=== PATIENT | male | born 1950 | race African-American/Black ===

== ENCOUNTER 2023-11-17 12:09 | Inpatient (IN) ==
--- NOTE | 2023-11-17 12:22 | Emergency Department Note ---
Impression & Plan Slurred speech, History of epilepsy, Vertebral artery occlusion ED Provider Note Provider: Trace Welch MD DATE OF SERVICE: 11/17/2023 CHIEF COMPLAINT: Speech issues, possible stroke HISTORY OF PRESENT ILLNESS: Patient is a 73-year-old gentleman history of traumatic brain bleed as well as epilepsy with neurocognitive behavior issues presenting via ambulance from [facility] present today. According to records from the staff and EMS report, patient evidently last week has had several falls and/or since 11 AM this morning was noted not quite be himself. They stated he had trouble finishing words and maybe had a bit of right facial droop. According to EMS the patient was resistant to interventions for them. Given possibility of stroke within the time window was made a stroke alert. Assessed in room B1. Patient initially highly agitated with guards at bedside and handcuffed screaming why is he here and he does not want to be here. Verbally de-escalated the patient. He seems to be following commands. Not sure of exact baseline with speech but does sound coherent to me at this time. Follows commands and denies any numbness in the extremities. Denies dizziness. Denies headache. States he had breakfast and then at lunch he dropped his tray and that is why he is here. Patient does report a history of seizures on Dilantin and Tegretol and states he has been taking these. Paperwork from the half-way confirms this. Paperwork also the case and the patient confirms he is normally wheelchair-bound. PAST MEDICAL HISTORY: As noted above MEDICATIONS: Reviewed medication list SOCIAL HISTORY: Inmate at the state half-way PHYSICAL EXAM: GENERAL: alert and oriented on stretcher handcuffed/shackled with guards at bedside. Patient initially agitated and screaming. Head: normocephalic and atraumatic EYES: No injection, discharge or icterus. PERRL, EOMI. NECK: Trachea midline. Supple. ENT: Mucous membranes pink and moist. Pharynx without erythema or exudate. LUNGS: Airway patent. No retractions. Breath sounds clear with good air entry bilaterally. HEART: Regular rate and rhythm. No chest wall tenderness ABDOMEN: Soft and non-tender, without guarding or rebound. SKIN: Acyanotic, warm, dry, without rashes EXTREMITIES: Without swelling, tenderness or deformity NEUROLOGICAL: No aphasia. No facial droop with perhaps some slight slurred speech. No tongue deviation. Normal strength and tone in the upper extremities. Bilateral fairly symmetric weakness of the lower extremities and is reportedly in a wheelchair at baseline. Sensation to gross touch normal. EK bpm sinus rhythm first-degree AV block. No PVC or PAC. No acute ST segment elevation or depression with a QTc of 417. CONTINUOUS CARDIAC MONITORING: was ordered and showed a heart rate of 90s-100s bpm in sinus rhythm first-degree AV block Patient's laboratory studies and imaging reviewed. Differential includes Infection, dehydration, metabolic abnormality, hypo/hyperglycemia, electrolyte disturbance, anemia, hypoxia, cardiac sources, intracerebral event, toxicologic, neurologic, as well as other pathologies. IMPRESSION/MEDICAL DECISION MAKING: No clear seizure activity reported from the available history. Patient is hypertensive upon arrival but somewhat agitated. Maybe a bit of speech abnormality by report and then several falls recently. Last known well reportedly around 11. Seem to be answering my questions appropriately. Follows commands. Does not have any obvious drift and moving all extremities fairly equal without significant facial droop on my exam or tongue deviation. Will obtain CT and CT angiograms of the head to ensure no acute abnormality as well as obtain basic blood work. Unfortunately Dilantin level will be a send out due to changes in the lab. Does not appear significantly toxic however. Denies any other infectious symptoms. Denies other pain in the extremities. Did discuss with Dr. Regalado of the [place] [facility] the patient's history. Does confirm that the history of traumatic subdural is an absolute contraindication for thrombolytics. Again not entirely sure the patient suffering true slurred speech at this point no other severe deficits and I do not believe he is also placed to truly consent for thrombolytics anyway. Will avoid thrombolytics given the contraindication. The angiograms were completed. 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 Discussed with the stroke specialist and recommended antiplatelet but no anticoagulation. No other acute intervention. Blood work here without significant leukocytosis. Borderline anemia at 12.6. No severe electrolyte abnormality signs of renal dysfunction. Urinalysis negative for signs of infection. Dilantin level again pending. Discussed with patient at bedside findings. Recommended given the CT angiogram findings we start the patient on aspirin and Plavix and monitor him here for further stroke like evaluation. Some discussion with him and the guards and patient was agreeable for this. Hospitalist team contacted. DIAGNOSIS: Slurred speech, vertebral artery occlusion, history of epilepsy DISPOSITION: Hospitalist will evaluate Patient was agreeable with this plan. 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, with behavioral disturbance Nicotine dependence in remission Seizure disorder Unspecified dementia with behavioral disturbance Surgical History No history of previous surgery Social History Smoking Status: Former smoker Tobacco Type: Cigarettes Do You Dip or Chew Tobacco: No; Hx Alcohol Use: No Hx Substance Use: No Preferred Language: Yi Communication Ability: Impaired Communication Ability Comment: pt with hx of unspecified dementia [employer] Required: No Beliefs That Will Affect Care: None Current Living Situation: Other Current Living Situation Comment: [facility] inmate Feels Safe at Home: Yes Assistive Devices: Cane, Glasses, Walker and Wheelchair Allergies Allergies Allergy/AdvReac Type Severity Reaction Status Date / Time No Known Allergies Allergy Verified 05/02/21 01:04 Home Meds Home Medications Medication Instructions Recorded Confirmed atorvastatin 20 mg tablet 20 mg PO DAILY 01/01/21 05/02/21 carbamazepine 200 mg tablet 600 mg PO BID 01/01/21 05/02/21 (Tegretol) phenytoin sodium extended 100 mg 100 mg PO QPM 01/01/21 05/02/21 capsule (Dilantin Extended) phenytoin sodium extended 100 mg 200 mg PO QAM 01/01/21 05/02/21 capsule (Dilantin Extended) memantine 10 mg tablet 10 mg PO BID 05/02/21 05/02/21 Results & Data (ED) Vital Signs Vital Signs - 24 hr 11/17/23 12:15 11/17/23 12:21 11/17/23 12:27 Temperature 37 C Temperature Source Oral Pulse Rate 99 H 100 H Pulse Rate [Finger] Pulse Rate from SpO2 Sensor Pulse Rhythm [Finger] Pulse Strength [Finger] Respiratory Rate 17 Respiratory Effort / Characteristics Respiratory Depth Respiratory Pattern Blood Pressure 173/89 H Blood Pressure [Right Arm] Blood Pressure Mean 117 Blood Pressure Mean [Right Arm] Pulse Oximetry 98 Oxygen Delivery Method Room Air Room Air Sepsis Recent Fever Within 48 Hours No Sepsis New/Unexplained Change in Mental Status N/A Sepsis Action Taken by Nursing No Action Required 11/17/23 12:38 11/17/23 12:39 11/17/23 12:39 Temperature Temperature Source Pulse Rate 93 H 94 H Pulse Rate [Finger] Pulse Rate from SpO2 Sensor 92 H 97 H Pulse Rhythm [Finger] Pulse Strength [Finger] Respiratory Rate 15 15 Respiratory Effort / Characteristics Respiratory Depth Respiratory Pattern Blood Pressure 153/123 H Blood Pressure [Right Arm] Blood Pressure Mean 136 Blood Pressure Mean [Right Arm] Pulse Oximetry 98 99 Oxygen Delivery Method Sepsis Recent Fever Within 48 Hours Sepsis New/Unexplained Change in Mental Status Sepsis Action Taken by Nursing 11/17/23 12:40 11/17/23 12:45 11/17/23 12:45 Temperature Temperature Source Pulse Rate 97 H 101 H Pulse Rate [Finger] Pulse Rate from SpO2 Sensor 97 H 97 H Pulse Rhythm [Finger] Pulse Strength [Finger] Respiratory Rate 20 17 Respiratory Effort / Characteristics Respiratory Depth Respiratory Pattern Blood Pressure 124/94 Blood Pressure [Right Arm] Blood Pressure Mean 108 Blood Pressure Mean [Right Arm] Pulse Oximetry 99 94 Oxygen Delivery Method Sepsis Recent Fever Within 48 Hours Sepsis New/Unexplained Change in Mental Status Sepsis Action Taken by Nursing 11/17/23 12:50 11/17/23 13:00 11/17/23 13:01 Temperature Temperature Source Pulse Rate 101 H 90 Pulse Rate [Finger] Pulse Rate from SpO2 Sensor 103 H 90 Pulse Rhythm [Finger] Pulse Strength [Finger] Respiratory Rate 19 Respiratory Effort / Characteristics Respiratory Depth Respiratory Pattern Blood Pressure 167/122 H Blood Pressure [Right Arm] Blood Pressure Mean 130 Blood Pressure Mean [Right Arm] Pulse Oximetry 98 98 Oxygen Delivery Method Sepsis Recent Fever Within 48 Hours Sepsis New/Unexplained Change in Mental Status Sepsis Action Taken by Nursing 11/17/23 13:01 11/17/23 14:00 Temperature Temperature Source Pulse Rate 91 H Pulse Rate [Finger] 93 H Pulse Rate from SpO2 Sensor 92 H Pulse Rhythm [Finger] Regular Pulse Strength [Finger] Normal Respiratory Rate 16 18 Respiratory Effort / Characteristics Non-Labored Respiratory Depth Normal Respiratory Pattern Regular Blood Pressure Blood Pressure [Right Arm] 157/79 H Blood Pressure Mean Blood Pressure Mean [Right Arm] 105 Pulse Oximetry 98 98 Oxygen Delivery Method Sepsis Recent Fever Within 48 Hours Sepsis New/Unexplained Change in Mental Status Sepsis Action Taken by Nursing Laboratory Data 11/17/23 12:19 11/17/23 12:19 Lab Results 11/17/23 11/17/23 11/17/23 Range/Units 12:19 12:21 13:25 WBC 6.95 (4.8-10.8) K/ul RBC 4.41 L (4.70-6.10) M/uL Hgb 12.6 L (14.0-18.0) g/dl POC Hgb 13.6 L (14.0-18.0) g/dl Hct 37.3 L (42.0-52.0) % POC Hct 40 L (42-52) % MCV 84.6 (80.0-100.0) fL MCH 28.6 (25.0-34.0) pg MCHC 33.8 (32.0-36.0) g/dL RDW Std Deviation 43.2 (36.4-46.3) fL RDW Coeff of Misty 14.0 (11.5-14.5) % Plt Count 305 (130-400) K/uL MPV 9.8 (9.4-12.4) fL Immature Gran % (Auto) 0.1 % Neut % (Auto) 62.7 % Lymph % (Auto) 24.0 % Frontier % (Auto) 10.5 % Eos % (Auto) 2.0 % Baso % (Auto) 0.7 % Neut # (Auto) 4.35 (1.40-6.50) K/uL Lymph # (Auto) 1.67 (1.20-3.40) K/uL Frontier # (Auto) 0.73 H (0.11-0.59) K/uL Eos # (Auto) 0.14 (0.00-0.50) K/uL Baso # (Auto) 0.05 (0.00-0.20) K/uL Immature Gran # (Auto) 0.01 (0.01-0.20) K/uL Target Cells 1+ PT 11.4 (9.0-12.0) Seconds INR 1.1 (0.9-1.1) APTT 33 H (21-31) Seconds PTT Ratio 1.2 POC Sodium 138 (135-144) mmol/L Sodium 135 L (136-145) mmol/L POC Potassium 4.3 (3.3-5.0) mmol/L Potassium 4.2 (3.5-5.1) mmol/L POC Chloride 102 (101-112) mmol/L Chloride 101 (98-107) mmol/L Carbon Dioxide 28 (21-32) mmol/L POC Total CO2 26 (24-31) mmol/L Anion Gap 6 (3-11) POC Anion Gap 15.0 L (16-25) mmol/L POC BUN 19 H (7-18) mg/dl BUN 18 (6-23) mg/dl Creatinine 0.82 (0.6-1.4) mg/dl POC Creatinine 0.8 (0.6-1.3) mg/dl Est Cr Clr Drug Dosing 61.5 ml/min Est GFR ( Amer) 100.3 ml/min Est GFR (Non-Af Amer) 86.5 ml/min BUN/Creatinine Ratio 22.0 H (10-20) Glucose 81 (70-99(Fasting)) mg/dl POC Glucose (other) 84 (70-99) mg/dl Calcium 9.4 (8.6-10.3) mg/dl POC Ioniz Calcium Oscar 1.16 (1.12-1.32) mmol/l Magnesium 2.3 (1.7-2.4) mg/dl Total Bilirubin 0.3 (0.2-1.0) mg/dl AST 34 (13-39) U/L ALT 15 (7-52) U/L Alkaline Phosphatase 90 (34-104) U/L Troponin I High Sens 17.7 (0-20) pg/ml Total Protein 8.6 H (6.0-8.3) gm/dl Albumin 4.3 (3.4-5.0) gm/dl Globulin 4.3 H (2.5-4.0) gm/dl Albumin/Globulin Ratio 1.0 (0.9-2) Urine Color Yellow Urine Appearance Clear (Clear) Urine pH 7.5 (4.5-7.5) Ur Specific Lacon 1.033 H (1.000-1.030) Urine Protein Negative (Negative) Urine Glucose (UA) Negative (Negative) Urine Ketones Negative (Negative) Urine Blood Negative (Negative) Urine Nitrite Negative (Negative) Urine Bilirubin Negative (Negative) Urine Urobilinogen Negative (Negative) Ur Leukocyte Esterase Negative (Negative) Phenytoin See Scanned Report Administered Medications Discontinued Medications Aspirin (Aspirin Chew 324 Mg) 324 mg PO NOW STA Stop: 11/17/23 14:10 Last Admin: 11/17/23 14:16 Dose: 324 mg Documented By: DONNA Clopidogrel Bisulfate (Clopidogrel Bisulfate 300 Mg Tab) 300 mg PO NOW STA Stop: 11/17/23 14:10 Last Admin: 11/17/23 14:16 Dose: 300 mg Documented By: DONNA Sodium Chloride (Nss) 500 mls @ 999 mls/hr IV .Q31M ONE Stop: 11/17/23 13:25 Last Infusion: 11/17/23 14:19 Dose: Infused Documented By: Admin: 11/17/23 12:57 Dose: 999 mls/hr Documented By: CANDIDO Ioversol (Optiray 320 125ml) 118 ml IV ONCE ONE Stop: 11/17/23 12:28 Last Admin: 11/17/23 12:27 Dose: 118 ml Documented By: [email or web address] Imaging Data Radiologist's Impression: Head CT 11/17/23 12:14 CT SCAN OF THE BRAIN WITHOUT IV CONTRAST CLINICAL HISTORY: Strokelike symptoms. Neurological deficit. Right-sided weakness. Change in mental status. COMPARISON STUDY: CT of the brain dated 06/15/2022. TECHNIQUE: Unenhanced axial CT scan of the brain is performed from the vertex to the skull base. A dose lowering technique was utilized adhering to the principles of ALARA. FINDINGS: Brain parenchyma: There is age-related involutional change noting moderate to advanced confluent subcortical and periventricular microangiopathic disease. There is no hemorrhage, mass effect, or evidence of acute territorial ischemia by CT criteria. Jason-white matter differentiation is preserved. No extra-axial fluid collection is seen. A chronic lacunar infarct is noted in the right thalamus. Ventricles, sulci, cisterns: Prominent secondary to involutional change. Intracranial vasculature: There is atherosclerotic calcification of the cavernous carotid arteries. Calvarium: Unremarkable. Sinuses and mastoids: The visualized paranasal sinuses are clear. The mastoid air cells are well pneumatized. Orbits: The bony orbits are grossly intact. IMPRESSION: There is no hemorrhage, mass effect, or evidence of acute territorial ischemia by CT criteria. ACT 112: Negative or not required by law. Electronically signed by: Logan Hugo M.D. 11/17/2023 12:45 PM Head CTA 11/17/23 12:14 CTA ANGIOGRAPHY OF THE HEAD CLINICAL HISTORY: neuro deficit, acute stroke suspected. Right-sided weakness. COMPARISON STUDY: Head CT June 15, 2022. TECHNIQUE: Helical axial images of the head were obtained following uneventful intravenous administration of 118 cc of Optiray. Sagittal and coronal reconstructions were viewed as well as maximal intensity projections on an independent 3-D workstation. Automated exposure control was utilized for the study. A dose lowering technique was utilized adhering to the principles of ALARA. FINDINGS: No acute intracranial hemorrhage was identified on the head CT will be reported separately. Atrophy is noted. This accounts for ventricular dilatation. White matter hypodensity suggests small vessel disease. The bilateral M1, M2, A1 and A2 segments are patent. There is no occlusion within the anterior circular lesion. There is no intracranial aneurysm. The left vertebral artery is occluded with reconstitution at the level of the distal intracranial portion. This occlusion is age-indeterminate but are depicted on CTA of the neck. The intracranial portion of the right vertebral artery is patent. Basilar artery is patent as are the bilateral posterior cerebral arteries. There are bilateral posterior communicating arteries. IMPRESSION: 1. 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 2. Otherwise, patent intracranial vessels. 3. No intracranial aneurysms. ACT 112: Negative or not required by law. Electronically signed by: Doc Lee M.D. 11/17/2023 12:54 PM Neck CTA 11/17/23 12:14 CT ANGIOGRAM OF THE NECK CLINICAL HISTORY: Neurological deficit. Strokelike symptoms. Right-sided weakness. COMPARISON STUDY: No priors. TECHNIQUE: Following the IV administration of 118 of Optiray 320, CT angiogram of the neck was performed from the aortic arch to the skull base. Images are reviewed in the axial, sagittal, and coronal planes. 3-D MIPS images are created and assessed. IV contrast was administered without complication. All measurements were calculated based on NASCET criteria. A dose lowering technique was utilized adhering to the principles of ALARA. CT DOSE: 1100.62 mGy.cm FINDINGS: Thoracic aorta: There is atherosclerotic calcification of the thoracic aorta. Visualized portions of the thoracic aorta are normal in caliber. The aortic arch demonstrates standard 3-vessel anatomy. Right carotid arterial system: The right common carotid artery is widely patent, as are the right internal and external carotid arteries. Mild calcified plaque is seen in the carotid bulb. Left carotid arterial system: The left common carotid artery is widely patent, as are the left internal and external carotid arteries. Calcified plaque is noted in the carotid bulb and the proximal ICA. 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 The vessels occlude to the skull base. There is moderate to high-grade focal stenosis at the origin of the right vertebral artery seen on axial image #87. Remainder of the right vertebral artery is widely patent. Subclavian arteries: Widely patent bilaterally. Intracranial vasculature: There is complete occlusion of the left vertebral artery at the skull base. This is reconstituted via retrograde flow below the basilar. The remaining intracranial vessels at the skull base are patent. See report of CT angiogram of the brain performed concurrently for detailed findings. Jugular veins: Widely patent bilaterally. Brain parenchyma: The visualized brain parenchyma the skull base is within normal limits. Lung apices: Emphysematous changes noted. Partially visualized upper lobe lung parenchyma otherwise appears clear. Soft tissues: The visualized pharyngeal soft tissues are normal in appearance noting angiographic phase technique. The oropharyngeal airway appears widely patent. The thyroid gland is mildly enlarged and heterogeneous. The salivary glands are normal in appearance. No cervical lymphadenopathy is seen. Skeletal structures: The skeletal structures are osteopenic. The visualized calvarium at the skull base appears intact. The imaged cervical spine is maintained noting multilevel spondylosis. Sinuses and mastoids: There is trace mucosal thickening in the right maxillary antrum. The mastoid air cells are well pneumatized. IMPRESSION: 1. 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 Underlying dissection would be impossible to exclude. 2. There is moderate to high-grade stenosis at the origin of the right vertebral artery. 3. The carotid vessels are patent bilaterally. 4. Emphysema. ACT 112: Negative or not required by law. Electronically signed by: Logan Hugo M.D. 11/17/2023 12:53 PM Discharge Plan Visit Data Patient Disposition: Being Evaluated by Hospitalist Forms Stand Alone Forms: My [facility] Prescriptions Prescriptions: No Action atorvastatin 20 mg Tablet 20 mg PO DAILY phenytoin sodium extended [Dilantin Extended] 100 mg Capsule 100 mg PO QPM carbamazepine [Tegretol] 200 mg Tablet 600 mg PO BID phenytoin sodium extended [Dilantin Extended] 100 mg Capsule 200 mg PO QAM memantine 10 mg Tablet 10 mg PO BID Referrals Referrals: Dasha PILLAI [Primary Care Provider] -
[2023-11-17] MEDS: OPTIRAY 320 125ml IV ONE (12:27)
[2023-11-17 12:34] LABS: iSTAT Creatinine 0.8 mg/dl (0.6-1.3); iSTAT Hemoglobin 13.6 g/dl (14.0-18.0); iSTAT Ionized Calcium 1.16 mmol/l (1.12-1.32); iSTAT Potassium 4.3 mmol/L (3.3-5.0)
[2023-11-17 12:44] LABS: Hematocrit (blood only) 37.3 % (42.0-52.0); Hemoglobin 12.6 g/dl (14.0-18.0); Mean Corpuscular Hemoglobin 28.6 pg (25.0-34.0); Mean Corpuscular Hgb Conc 33.8 g/dL (32.0-36.0); Mean Corpuscular Volume 84.6 fL (80.0-100.0); Mean Platelet Volume 9.8 fL (9.4-12.4); Platelet Count 305 K/uL (130-400); RDW Standard Deviation 43.2 fL (36.4-46.3); Red Blood Count 4.41 M/uL (4.70-6.10); White Blood Count 6.95 K/ul (4.8-10.8)
--- NOTE | 2023-11-17 12:47 | CT Scan Report ---
CT SCAN OF THE BRAIN WITHOUT IV CONTRAST CLINICAL HISTORY: Strokelike symptoms. Neurological deficit. Right-sided weakness. Change in mental s tatus. COMPARISON STUDY: CT of the brain dated 06/15/2022. TECHNIQUE: Unenhanced axial CT scan of the brain is performed from the vertex to the skull base. A do se lowering technique was utilized adhering to the principles of ALARA. FINDINGS: Brain parenchyma: There is age-related involutional change noting moderate to advanced confluent subc ortical and periventricular microangiopathic disease. There is no hemorrhage, mass effect, or evidenc e of acute territorial ischemia by CT criteria. Jason-white matter differentiation is preserved. No ex tra-axial fluid collection is seen. A chronic lacunar infarct is noted in the right thalamus. Ventricles, sulci, cisterns: Prominent secondary to involutional change. Intracranial vasculature: There is atherosclerotic calcification of the cavernous carotid arteries. Calvarium: Unremarkable. Sinuses and mastoids: The visualized paranasal sinuses are clear. The mastoid air cells are well pneu matized. Orbits: The bony orbits are grossly intact. IMPRESSION: There is no hemorrhage, mass effect, or evidence of acute territorial ischemia by CT mehul bar. ACT 112: Negative or not required by law. Electronically signed by: Logan Hugo M.D. 11/17/2023 12:45 PM
[2023-11-17 12:54] LABS: Albumin Level 4.3 gm/dl (3.4-5.0); Bilirubin,Total 0.3 mg/dl (0.2-1.0); Calcium 9.4 mg/dl (8.6-10.3); Creatinine Clr Calc Pharmacy 61.5 ml/min; Est GFR (African American) 100.3 ml/min; Est GFR (Non-African American) 86.5 ml/min; Globulin 4.3 gm/dl (2.5-4.0); Magnesium 2.3 mg/dl (1.7-2.4); Potassium 4.2 mmol/L (3.5-5.1); Total Protein 8.6 gm/dl (6.0-8.3)
--- NOTE | 2023-11-17 12:55 | CT Scan Report ---
CT ANGIOGRAM OF THE NECK CLINICAL HISTORY: Neurological deficit. Strokelike symptoms. Right-sided weakness. COMPARISON STUDY: No priors. TECHNIQUE: Following the IV administration of 118 of Optiray 320, CT angiogram of the neck was perfor med from the aortic arch to the skull base. Images are reviewed in the axial, sagittal, and coronal p lanes. 3-D MIPS images are created and assessed. IV contrast was administered without complication. A ll measurements were calculated based on NASCET criteria. A dose lowering technique was utilized adh ering to the principles of ALARA. CT DOSE: 1100.62 mGy.cm FINDINGS: Thoracic aorta: There is atherosclerotic calcification of the thoracic aorta. Visualized portions of the thoracic aorta are normal in caliber. The aortic arch demonstrates standard 3-vessel anatomy. Right carotid arterial system: The right common carotid artery is widely patent, as are the right int ernal and external carotid arteries. Mild calcified plaque is seen in the carotid bulb. Left carotid arterial system: The left common carotid artery is widely patent, as are the left internet marketer al and external carotid arteries. Calcified plaque is noted in the carotid bulb and the proximal ICA. 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 The vessels occlude to the skull base. There is moderate to high-grade focal stenosis at the origin of the right vertebral artery seen on axial imag e #87. Remainder of the right vertebral artery is widely patent. Subclavian arteries: Widely patent bilaterally. Intracranial vasculature: There is complete occlusion of the left vertebral artery at the skull base. This is reconstituted via retrograde flow below the basilar. The remaining intracranial vessels at t he skull base are patent. See report of CT angiogram of the brain performed concurrently for detailed findings. Jugular veins: Widely patent bilaterally. Brain parenchyma: The visualized brain parenchyma the skull base is within normal limits. Lung apices: Emphysematous changes noted. Partially visualized upper lobe lung parenchyma otherwise a ppears clear. Soft tissues: The visualized pharyngeal soft tissues are normal in appearance noting angiographic pha se technique. The oropharyngeal airway appears widely patent. The thyroid gland is mildly enlarged an d heterogeneous. The salivary glands are normal in appearance. No cervical lymphadenopathy is seen. Skeletal structures: The skeletal structures are osteopenic. The visualized calvarium at the skull ba se appears intact. The imaged cervical spine is maintained noting multilevel spondylosis. Sinuses and mastoids: There is trace mucosal thickening in the right maxillary antrum. The mastoid ai r cells are well pneumatized. IMPRESSION: 1. 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 Underlyi ng dissection would be impossible to exclude. 2. There is moderate to high-grade stenosis at the origin of the right vertebral artery. 3. The carotid vessels are patent bilaterally. 4. Emphysema. ACT 112: Negative or not required by law. Electronically signed by: Logan Hugo M.D. 11/17/2023 12:53 PM
--- NOTE | 2023-11-17 12:55 | CT Scan Report ---
CTA ANGIOGRAPHY OF THE HEAD CLINICAL HISTORY: neuro deficit, acute stroke suspected. Right-sided weakness. COMPARISON STUDY: Head CT June 15, 2022. TECHNIQUE: Helical axial images of the head were obtained following uneventful intravenous administr ation of 118 cc of Optiray. Sagittal and coronal reconstructions were viewed as well as maximal inten sity projections on an independent 3-D workstation. Automated exposure control was utilized for the study. A dose lowering technique was utilized adhering to the principles of ALARA. FINDINGS: No acute intracranial hemorrhage was identified on the head CT will be reported separately. Atrophy is noted. This accounts for ventricular dilatation. White matter hypodensity suggests small vessel disease. The bilateral M1, M2, A1 and A2 segments are patent. There is no occlusion within the anterior circular lesion. There is no intracranial aneurysm. The left vertebral artery is occluded w ith reconstitution at the level of the distal intracranial portion. This occlusion is age-indetermina te but are depicted on CTA of the neck. The intracranial portion of the right vertebral artery is pat ent. Basilar artery is patent as are the bilateral posterior cerebral arteries. There are bilateral p osterior communicating arteries. IMPRESSION: 1. Age indeterminate occlusion of the left vertebral artery with reconstitution within the distal int racranial portion. 2. Otherwise, patent intracranial vessels. 3. No intracranial aneurysms. ACT 112: Negative or not required by law. Electronically signed by: Doc Lee M.D. 11/17/2023 12:54 PM
[2023-11-17] MEDS: SODIUM CHLORIDE 0.9% 500 ML IV ONE (12:57)
[2023-11-17 13:01] LABS: Troponin I High Sensitivity 17.7 pg/ml (0-20)
[2023-11-17 13:04] LABS: INR 1.1 (0.9-1.1); Partial Thromboplastin Ratio 1.2; Partial Thromboplastin Time 33 Seconds (21-31); Prothrombin Time 11.4 Seconds (9.0-12.0)
[2023-11-17 13:06] LABS: Basophils # (auto) 0.05 K/uL (0.00-0.20); Basophils % (auto) 0.7 %; Eosinophils # (auto) 0.14 K/uL (0.00-0.50); Immature Granulocytes # (auto) 0.01 K/uL (0.01-0.20); Immature Granulocytes % (auto) 0.1 %; Lymphocytes # (auto) 1.67 K/uL (1.20-3.40); Monocytes # (auto) 0.73 K/uL (0.11-0.59); Monocytes % (auto) 10.5 %; Neutrophils # (auto) 4.35 K/uL (1.40-6.50); Neutrophils % (auto) 62.7 %; Target Cells 1+
[2023-11-17 13:48] LABS: Appearance Urine Clear (Clear); Bilirubin Urine Negative (Negative); Blood Urine Negative (Negative); Color Urine Yellow; Glucose Urine UA Negative (Negative); Ketones Urine Negative (Negative); Leukocyte Esterase Urine Negative (Negative); Nitrite Urine Negative (Negative); Protein Urine Negative (Negative); Specific Gravity Urine 1.033 (1.000-1.030); Urobilinogen Urine Negative (Negative); pH Urine 7.5 (4.5-7.5)
[2023-11-17] MEDS: CLOPIDOGREL BISULFATE 300 MG TAB PO STA (14:16)
[2023-11-17] MEDS: ASPIRIN CHEW 324 MG PO STA (14:16)
--- NOTE | 2023-11-17 15:56 | History & Physical Report ---
Date of Service November 17, 2023 Assessment & Plan (1) Vertebral artery occlusion: (2) History of epilepsy: (3) Slurred speech: Plan 73 yo male with h/o TBI, seizures admitted with change in mental status, TIA symptoms, CTA brain vertebral artery occlusion, acuity unknown neuro checks tele asa, plavix continue statins neuro consult BP control Dilantin level elevated decrease dose or transition to Keppra continue Tegretol obtain level History of Present Illness Chief Complaint: slurred speech, confusion Primary Care Provider: ROSAS Lou 73-year-old gentleman history of traumatic brain bleed as well as epilepsy , TBI presenting via ambulance from [facility] present today. According to records from the staff and EMS report, patient evidently last week has had several falls and/or since 11 AM this morning was noted not quite be himself. They stated he had slurred speech and maybe had a bit of right facial droop. alert. Patient initially highly agitated with guards at bedside and handcuffed screaming why is he here and he does not want to be here.Patient is wheelchair bound. Follows commands and denies any numbness in the extremities. Denies dizziness. Denies headache. S Patient does report a history of seizures on Dilantin and Tegretol and states he has been taking these. 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 Allergies Allergy/AdvReac Type Severity Reaction Status Date / Time No Known Allergies Allergy Verified 05/02/21 01:04 Home Medications Medication Instructions Recorded Confirmed Type atorvastatin 20 mg tablet 20 mg PO DAILY 01/01/21 05/02/21 History carbamazepine 200 mg tablet 600 mg PO BID 01/01/21 05/02/21 History (Tegretol) phenytoin sodium extended 100 mg 100 mg PO QPM 01/01/21 05/02/21 History capsule (Dilantin Extended) phenytoin sodium extended 100 mg 200 mg PO QAM 01/01/21 05/02/21 History capsule (Dilantin Extended) memantine 10 mg tablet 10 mg PO BID 05/02/21 05/02/21 History 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, with behavioral disturbance Nicotine dependence in remission Seizure disorder Unspecified dementia with behavioral disturbance Surgical History No history of previous surgery Social History Smoking Status: Former smoker Tobacco Type: Cigarettes Do You Dip or Chew Tobacco: No; Hx Alcohol Use: No Hx Substance Use: No Preferred Language: Sami Communication Ability: Impaired Communication Ability Comment: pt with hx of unspecified dementia Concrete Paving Supervisor Required: No Beliefs That Will Affect Care: None Current Living Situation: Other Current Living Situation Comment: [facility] inmate Feels Safe at Home: Yes Assistive Devices: Cane, Glasses, Walker and Wheelchair Review of Systems Review of Systems: All systems reviewed & are unremarkable except as noted in HPI & below Physical Exam Physical Exam: head atraumatic neck supple chest CTA b/l heart S1S2 regular abdomen soft, nt, nd, bs present extremities no swelling, no cyanosis, pulses decreased neuro alert, awake, no focal deficit, generalized weakness Results & Data Results & Data Vital Signs (Past 12 Hours) Vital Signs Temp Pulse Pulse Resp BP BP Pulse Ox 11/17/23 14:00 93 H 18 157/79 H 98 11/17/23 13:01 91 H 16 98 11/17/23 13:01 167/122 H 11/17/23 13:00 90 19 98 11/17/23 12:50 101 H 98 11/17/23 12:45 101 H 17 94 11/17/23 12:45 124/94 11/17/23 12:40 97 H 20 99 11/17/23 12:39 153/123 H 11/17/23 12:39 94 H 15 99 11/17/23 12:38 93 H 15 98 11/17/23 12:27 11/17/23 12:21 100 H 11/17/23 12:15 37 C 99 H 17 173/89 H 98 O2 Del Method 11/17/23 14:00 11/17/23 13:01 11/17/23 13:01 11/17/23 13:00 11/17/23 12:50 11/17/23 12:45 11/17/23 12:45 11/17/23 12:40 11/17/23 12:39 11/17/23 12:39 11/17/23 12:38 11/17/23 12:27 Room Air 11/17/23 12:21 11/17/23 12:15 Room Air Laboratory Results Abnormal lab results 11/17/23 11/17/23 11/17/23 Range/Units 12:19 12:21 13:25 RBC 4.41 L (4.70-6.10) M/uL Hgb 12.6 L (14.0-18.0) g/dl POC Hgb 13.6 L (14.0-18.0) g/dl Hct 37.3 L (42.0-52.0) % POC Hct 40 L (42-52) % Brown # (Auto) 0.73 H (0.11-0.59) K/uL APTT 33 H (21-31) Seconds Sodium 135 L (136-145) mmol/L POC Anion Gap 15.0 L (16-25) mmol/L POC BUN 19 H (7-18) mg/dl BUN/Creatinine Ratio 22.0 H (10-20) Total Protein 8.6 H (6.0-8.3) gm/dl Globulin 4.3 H (2.5-4.0) gm/dl Ur Specific [place] 1.033 H (1.000-1.030) PG Care Time/CCT Total # of Minutes Spent Total Time Spent with Patient: Total time spent is greater than 50% in coordination of care (as documented) at patient's floor/unit and/or counseling patient: Coding Level of Care Code 97854 INT INP/OBS CARE 2/55MIN Diagnoses Vertebral artery occlusion I65.09 History of epilepsy Z86.69 Slurred speech R47.81
--- NOTE | 2023-11-17 16:51 | Electrocardiogram Report ---
Test Reason : Blood Pressure : / mmHG Vent. Rate : 092 BPM Atrial Rate : 092 BPM P-R Int : 216 ms QRS Dur : 072 ms QT Int : 338 ms P-R-T Axes : 087 090 072 degrees QTc Int : 417 ms Sinus rhythm with 1st degree A-V block Rightward axis Borderline ECG When compared with ECG of 15-JUN-2022 19:53, No significant change was found Confirmed by Filiberto Mai ([id number]) on 11/17/2023 4:51:26 PM Referred By: [facility] Confirmed By:Filiberto Mai
[2023-11-17] MEDS ORDERED: [UNRECOGNIZED DRUG - OTHER] BUCCAL SCH (17:11)
[2023-11-17] MEDS ORDERED: ACETAMINOPHEN 325 MG TAB PO PRN (17:11)
[2023-11-17] MEDS ORDERED: POLYETHYLENE (MIRALAX) 17 GM PACK PO PRN (17:11)
[2023-11-17] MEDS ORDERED: MELATONIN 3 MG TAB PO PRN (17:11)
[2023-11-17] MEDS ORDERED: MAGNESIUM HYDROXIDE SUSP 30 ML UDC PO PRN (17:11)
[2023-11-17] MEDS ORDERED: ONDANSETRON INJ 2 MG/ML 2 ML VIAL IV PRN (17:11)
[2023-11-17] MEDS: ASPIRIN 81 MG ECTAB PO ONE (17:57)
--- NOTE | 2023-11-17 18:46 | XRay Report ---
SINGLE VIEW CHEST CLINICAL HISTORY: MRI clearance. FINDINGS: An AP, portable, supine chest radiograph is compared to study dated 06/15/2022. The cardiom ediastinal silhouette is top normal for projection noting atherosclerotic calcification of the thorac ic aorta. Emphysema and chronic interstitial thickening is similar to previous. Postoperative parench ymal scarring are seen throughout both lungs. No airspace consolidation or large pleural effusion is identified. No pneumothorax is seen. The skeletal structures are osteopenic. There are chronic/healed left-sided rib fractures. No radiodense/metallic foreign body is seen. IMPRESSION: 1. Emphysematous change with no active disease in the chest. 2. No radiodense/metallic foreign body is seen. ACT 112: Negative or not required by law. Electronically signed by: Logan Hugo M.D. 11/17/2023 6:44 PM
--- NOTE | 2023-11-17 18:54 | XRay Report ---
KUB CLINICAL HISTORY: MRI clearance. FINDINGS: 2 AP, portable, supine abdominal radiographs are obtained. No prior studies are available f or comparison at the time of dictation. There is a nonobstructed abdominal bowel gas pattern. Moderat e to severe constipation is observed. No evidence of intraperitoneal free air is identified on these supine images. The bladder is markedly distended with excreted IV contrast and there is bilateral hyd ronephrosis. The skeletal structures are osteopenic. The bony structures are grossly intact. No radio dense/metallic foreign body is seen. IMPRESSION: 1. Excreted IV contrast shows a severely distended bladder with bilateral hydronephrosis. This likely represents bladder outlet obstruction. 2. Moderate to severe constipation. 3. No radiodense/metallic foreign body is identified. Electronically signed by: Logan Hugo M.D. 11/17/2023 6:53 PM
--- NOTE | 2023-11-17 18:57 | XRay Report ---
BONY ORBITS 3 VIEWS CLINICAL HISTORY: MRI clearance. FINDINGS: 3 views of the bony orbits are obtained. No prior studies are available for comparison at t he time of dictation. There is no radiodense/metallic foreign body seen in the region of the bony orb its. The bony orbits are intact as imaged. The visualized paranasal sinuses and the mastoid air cells appear clear. The imaged calvarium appears intact. The patient is edentulous. IMPRESSION: There is no radiodense/metallic foreign body seen in the region of the bony orbits. ACT 112: Negative or not required by law. Electronically signed by: Logan Hugo M.D. 11/17/2023 6:56 PM
[2023-11-17 20:02] LABS: Appearance Urine Clear (Clear); Bacteria Urine Automated None Seen (None Seen); Bilirubin Urine Negative (Negative); Blood Urine Trace (Negative); Cast Urine Automated 0-2 /lpf (0-2); Color Urine Yellow; Epithelial Cell Urine Auto 0-2 /hpf (0-2); Glucose Urine UA Negative (Negative); Ketones Urine Negative (Negative); Leukocyte Esterase Urine Negative (Negative); Nitrite Urine Negative (Negative); Protein Urine Negative (Negative); Specific Gravity Urine 1.026 (1.000-1.030); Urobilinogen Urine Negative (Negative); WBC Urine Automated 0-5 /hpf (0-5)
[2023-11-17] MEDS: cefTRIAXone SODIUM 1,000 MG/50 ML BAG IV STA (20:45)
[2023-11-17] MEDS: carBAMazepine 200 MG TABLET PO SCH (20:47)
[2023-11-17] MEDS: MEMANTINE HCL 10 MG TAB PO SCH (20:47)
[2023-11-17] MEDS ORDERED: PHENYTOIN SODIUM ER 100 MG CAP PO SCH (21:00)
--- NOTE | 2023-11-17 21:19 | Magnetic Resonance Report ---
Exam(s): MRA HEAD Without Contrast EXAM: MR Angiography Head Without Intravenous Contrast CLINICAL HISTORY: Reason for exam: vertebral artery dissection. TECHNIQUE: Magnetic resonance angiography images of the head without intravenous contrast. COMPARISON: CTA of the head performed on 11/17/2023. FINDINGS: Limitations: Study limited by patient motion. Right internal carotid artery: No acute findings. Intracranial segment is patent with no significant stenosis. No aneurysm. Right anterior cerebral artery: Unremarkable. No occlusion or significant stenosis. No aneurysm. Right middle cerebral artery: Unremarkable. No occlusion or significant stenosis. No aneurysm. Right posterior cerebral artery: Unremarkable. No occlusion or significant stenosis. No aneurysm. Right vertebral artery: Unremarkable as visualized. Left internal carotid artery: No acute findings. Intracranial segment is patent with no significant stenosis. No aneurysm. Left anterior cerebral artery: Unremarkable. No occlusion or significant stenosis. No aneurysm. Left middle cerebral artery: Unremarkable. No occlusion or significant stenosis. No aneurysm. Left posterior cerebral artery: Unremarkable. No occlusion or significant stenosis. No aneurysm. Left vertebral artery: Unremarkable as visualized. Basilar artery: Unremarkable. No occlusion or significant stenosis. No aneurysm. IMPRESSION: Study limited by patient motion but no gross acute abnormality of the large caliber intracranial arteries. Electronically signed by: Dagoberto Pizano M.D. 11/17/23 21:18 PM
--- NOTE | 2023-11-17 21:23 | Magnetic Resonance Report ---
Exam(s): MRI HEAD Without Contrast EXAM: MR Head Without Intravenous Contrast CLINICAL HISTORY: Reason for exam: CVA. TECHNIQUE: Magnetic resonance images of the head/brain without intravenous contrast in multiple planes. COMPARISON: No relevant prior studies available. FINDINGS: Brain: Left occipital encephalomalacia likely related to remote infarct. Atrophy cerebral spinal cord with severe spinal canal stenosis at the C4-5 level incompletely evaluated on this exam. Moderate periventricular white matter changes, likely related to chronic microangiopathy. No hemorrhage. Ventricles: Unremarkable. No ventriculomegaly. Bones/joints: See above. Sinuses: Unremarkable as visualized. No acute sinusitis. Mastoid air cells: Unremarkable as visualized. No mastoid effusion. Orbits: Unremarkable as visualized. IMPRESSION: 1. Atrophy cerebral spinal cord with severe spinal canal stenosis at the C4-5 level incompletely evaluated on this exam. 2. Moderate periventricular white matter changes, likely related to chronic microangiopathy. Electronically signed by: Dagoberto Pizano M.D. 11/17/23 21:22 PM
[2023-11-18 08:21] LABS: BUN Creatinine Ratio 20.5 (10-20); Calcium 8.8 mg/dl (8.6-10.3); Chol HDL Ratio 2.5 (0-5); Creatinine Clr Calc Pharmacy 69.5 ml/min; Est GFR (African American) 105.2 ml/min; Est GFR (Non-African American) 90.7 ml/min; Magnesium 2.3 mg/dl (1.7-2.4); Potassium 4.5 mmol/L (3.5-5.1)
[2023-11-18 08:22] LABS: Estimated Average Glucose 111 mg/dl; Hemoglobin A1C 5.5 % (4.5-5.6)
[2023-11-18 08:28] LABS: Basophils # (auto) 0.06 K/uL (0.00-0.20); Basophils % (auto) 0.9 %; Eosinophils # (auto) 0.21 K/uL (0.00-0.50); Hematocrit (blood only) 35.7 % (42.0-52.0); Hemoglobin 11.8 g/dl (14.0-18.0); Immature Granulocytes # (auto) 0.01 K/uL (0.01-0.20); Immature Granulocytes % (auto) 0.1 %; Lymphocytes # (auto) 1.26 K/uL (1.20-3.40); Lymphocytes % (auto) 18.1 %; Mean Corpuscular Hemoglobin 28.4 pg (25.0-34.0); Mean Corpuscular Hgb Conc 33.1 g/dL (32.0-36.0); Mean Corpuscular Volume 85.8 fL (80.0-100.0); Mean Platelet Volume 9.3 fL (9.4-12.4); Monocytes # (auto) 0.64 K/uL (0.11-0.59); Monocytes % (auto) 9.2 %; Neutrophils % (auto) 68.7 %; Platelet Count 305 K/uL (130-400); RDW Coefficient of Variation 14.2 % (11.5-14.5); RDW Standard Deviation 44.5 fL (36.4-46.3); Red Blood Count 4.16 M/uL (4.70-6.10); White Blood Count 6.98 K/ul (4.8-10.8)
[2023-11-18] MEDS ORDERED: CLOPIDOGREL BISULFATE 75 MG TAB PO SCH (09:00)
[2023-11-18] MEDS: CLOPIDOGREL BISULFATE 75 MG TAB PO SCH (09:34)
[2023-11-18] MEDS: ASPIRIN 81 MG ECTAB PO SCH (09:34)
[2023-11-18] MEDS: ATORVASTATIN 20 MG TAB PO SCH (09:34)
[2023-11-18] MEDS: PHENYTOIN SODIUM ER 100 MG CAP PO SCH (09:35)
--- NOTE | 2023-11-18 11:00 | Neurology Consultation ---
Date of Consultation November 18, 2023 Assessment & Plan (1) Acute right-sided weakness: (2) History of epilepsy: (3) Slurred speech: (4) Ataxia: (5) Neurocognitive disorder: (6) Phenytoin toxicity: (7) Cervical spinal stenosis: (8) Vertebral artery occlusion: Plan This is a complicated patient neurologically and unfortunately he does not give a very clear history. He has a longstanding history of seizure disorder and has been on phenytoin and carbamazepine for approximately 44 years. In the past he has had toxic levels of both medicines and currently he has not toxic Dilantin level. His seizures have been fairly well-controlled as far as I can tell The patient had an acute constellation of symptoms November 16 (word finding difficulty and right-sided weakness) which have resolved. MRI shows no evidence of stroke but he does have old small vessel ischemic disease. In addition he has vertebral occlusion on the left (age-indeterminate) as well as moderate to significant right vertebral stenosis at the origin. A TIA cannot be excluded. Patient has progressive balance and neurocognitive issues. I suspect this is chronic Dilantin (and/or carbamazepine) toxicity. These can give ataxia, dementia, and neuropathy. There is a concern about significant cervical spinal stenosis based on 1 college scouting coordinator film from the MRI of the brain. I see no evidence of upper motor neuron signs in the limbs but he likely has some neuropathy from chronic Dilantin usage which would mask any upper motor neuron signs. Since the patient has no teeth in, his speech might be slurred from that. The patient has a history of syphilis in the past, but I do not have any details regarding this. Neurosyphilis can create neurocognitive and balance issues as well. Recommendations: 1. Continue Dilantin at the decreased dose of 100 mg twice a day. Recheck a trough level in 2 weeks and make additional recommendations 2. Awaiting carbamazepine level (I also suspect that this is toxic as he is on a very large dose for his size). 3. terminal superintendent (as an outpatient) we may consider discontinuing Dilantin or carbamazepine and using different, new or anticonvulsants which do not have the long-term cognitive side effects. This would include lamotrigine. I would not, however, make any changes in medication at this time (simply lower toxic levels). 4. Check TSH, B12, Lyme antibody titer, and test for syphilis 5. MRI of the cervical spine without contrast. 6. Continue 81 mg aspirin tablet daily. Depending on his clinical course she may do better with clopidogrel instead of aspirin given his significant vertebral stenosis. 7. I see no need for an EEG or other neurologic testing at this time. 8. If neuro syphilis is being considered he would need an LP (which could be arranged as an outpatient) 9. I could follow-up as an outpatient and 4 to 6 weeks if desired. Overall, I spent a total of 110 minutes with this case including review of records, review of MRI films, direct evaluation the patient at bedside, report generation, and discussion of the case with the patient and RN at bedside and Dr. Campos including differential diagnosis and treatment options. History of Present Illness Reason for Consultation: Patient is a 73-year-old, who I was asked to see at the request of Dr. Fajardo, for neurologic evaluation regarding possible stroke Requesting Physician: Dr. Fajardo Attending Physician: Liz Campos MD History of Present Illness This patient apparently has a history of a "crippled foot" since childhood (he is not overly clear as to what happened to the foot except the big toe does not work and he may have had a significant laceration which needed repaired). His walking has been affected by this but he has not been in a wheelchair except the last few years. The patient has a history of seizures and states that he has been on phenytoin and carbamazepine since 1979. As far as we can gather from records, his seizure disorder has been fairly well-controlled. Current dose of carbamazepine is 600 mg twice a day. His current dose of phenytoin is unclear between the chart and the ER note but I believe that the patient is on 200 mg in the morning and 100 mg in the evening. The patient has neurocognitive, behavioral, and dementia like symptoms which have been progressive over an uncertain timeframe (at least years). The patient himself does not give a good history. Currently he is on memantine 10 mg twice a day. In May 2021, the patient stumbled and fell hitting his head on the doorway. He had a very tiny left frontotemporal subdural hematoma and was sent to [facility]. By June 27, 2021, a repeat CT scan of the head was clear with no subdural. Subsequent CT scans have shown no hemorrhage or abnormalities. I cannot detect any episodes of seizure activity reviewing the chart. According to [facility] medical records, the patient has been falling several times over the last week. He also has not been "himself" behaviorally or cognitively. On the morning of November 16 around 1100 she was found to have a right facial droop, some right-sided weakness, and word finding difficulty. He was also more confused and agitated. He arrived to the emergency room November 16 at 1215 with a temperature of 37, pulse 99, blood pressure 173/89, respiratory rate 17, and O2 saturation 98%. In the ER, he was felt to have some slightly slurred speech and weak in both lower extremities. He was very agitated and screaming requiring physical restraint. CBC revealed mild but stable anemia. CHEM profile was unremarkable. Urinalysis was unremarkable. Phenytoin level was elevated at 31 (normal 10-20). His carbamazepine level is still pending. CT scan of the head was unremarkable. CT angiography of the head and neck was remarkable only for some right vertebral stenosis of a moderate to significant nature at the origin, and an age- indeterminate left vertebral occlusion. It was impossible to exclude dissection. Chest x-ray showed COPD/chronic pulmonary changes MRI of the brain showed atrophy and white matter disease but no acute stroke. There was also mention of this spinal cord atrophy and stenosis at C4-5 (but this was made on 1 sagittal college scouting coordinator image). I reviewed these films with Dr. Lee. Throughout his hospitalization he has had some fluctuating mental status with times of pressured speech and agitation and times of being more clearheaded and calm. He has been noted to have dysarthria although he does not have teeth in. Nursing reports no new issues and blood pressure currently is 132/69. Allergies Allergy/AdvReac Type Severity Reaction Status Date / Time No Known Allergies Allergy Verified 11/17/23 16:53 Home Medications Medication Instructions Recorded Confirmed Type atorvastatin 20 mg tablet 20 mg PO DAILY 01/01/21 11/17/23 History carbamazepine 200 mg tablet 600 mg PO AMPM 01/01/21 11/17/23 History (Tegretol) memantine 10 mg tablet 10 mg PO BID 05/02/21 11/17/23 History phenytoin 50 mg chewable tablet 50 mg PO [id number] 11/17/23 11/17/23 History phenytoin 50 mg chewable tablet 50 mg PO QAM 11/17/23 11/17/23 History phenytoin sodium extended 100 mg 100 mg PO AMPM 11/17/23 11/17/23 History capsule Patient History Medical History Hx of syphilis 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 Nicotine dependence in remission Seizure disorder 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, with behavioral disturbance Abnormality of gait and mobility Unspecified dementia with behavioral disturbance Surgical History No history of previous surgery Social History (Updated 11/18/23 @ 10:41 by Antonio Regalado MD) Smoking Status: Former smoker Tobacco Type: Cigarettes Age Started Using Tobacco: 13; Age Quit Using Tobacco: 68; packs per day: 1.5; Second Hand Exposure: No; Do You Dip or Chew Tobacco: No; Hx Alcohol Use: No (Patient was a heavy alcohol drinker in the past, prior to incarceration.) Hx Substance Use: No Preferred Language: Cantonese Bengali Communication Ability: Effective Communication Ability Comment: pt with hx of unspecified dementia Coordinator Of Online Programs Required: No Beliefs That Will Affect Care: None Current Living Situation: Other Current Living Situation Comment: [facility] current occupation: 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 Feels Safe at Home: Yes Assistive Devices: Wheelchair Review of Systems Constitutional: no fever, no fatigue and no weakness Eyes: + worsening vision (Blurry vision right eye); no diplopia and no eye pain Ear, Nose, Mouth, Throat: no ear pain, no tinnitus, no hearing loss, no dizziness, no snoring, no hoarseness and no dysphagia Respiratory: no cough and no dyspnea Cardiovascular: no chest pain, no palpitations and no lightheadedness Gastrointestinal: no abdominal pain, no nausea and no vomiting Musculoskeletal: no back pain, no neck pain, no radicular pain, no joint pain and no myalgia Integumentary: no rash and no lesions Neurologic: + gait abnormality, + tremor(s), + confu minh and + memory loss; no localized weakness, no generalized weakness, no tingling, no numbness, no abnormal movements, no headache(s) and no abnormal speech Psychiatric: no depression, no irritability, no anxiety, no difficulty concentrating, no confusion and no hallucinations Endocrine: no fatigue and no flushing Hematologic / Lymphatic: no easy bleeding and no easy bruising Allergy / Immunological: no urticaria and no problem reported Exam (Neuro) Physical Exam: The patient is right-handed. The patient is awake, alert, and attentive. Speech is normal without any aphasia. He is somewhat dysarthric but he has no teeth and. At times he can get a little bit agitated but he is quickly calm down with voice. Mood is otherwise normal and affect is appropriate. He was oriented to his name but not his age or the year. He knew the month. He could follow one-step commands fairly well and was able to write his name and read some. The patient has some occasional flailing movements of the upper extremities consistent with a type of ataxia. The lower extremities did not do this. Pupils are 2 mm bilaterally and questionably reactive to light. Extraocular eye muscles are intact without nystagmus. Visual acuity and visual [place] seem normal grossly to confrontation. There are no deficits to sensation in the face in all 3 distributions of the fifth cranial nerve bilaterally. Corneal reflexes are positive bilaterally. Facial strength and symmetry was normal bilaterally. Hearing seems intact grossly to voice and finger rub bilaterally. Palate moves well without asymmetry. There is normal sternocleidomastoid and trapezius strength bilaterally. Tongue is midline with good strength bilaterally. Neck has a full range of motion without discomfort. There are no cervical bruits bilaterally. There are no cranial or ocular bruits. Heart is without murmur. There is a regular rhythm and rate. Cervical, thoracic, and lumbar spine are nontender to palpation. Gait was not tested and stance sitting up in bed is reasonable. With outstretched arms there is no drift. There are no resting tremors. He did have mild coarse action tremor left greater than right arm. There is mild ataxia with finger to nose testing. There is decreased facility in the hands, with mild ataxia noted with rapid alternating movements. No other abnormal involuntary movements are noted. Motor strength is 5/5 diffusely in the arms bilaterally including deltoids, biceps, brachioradialis, wrist flexors and extensors, it business process architect, and intrinsic hand muscles. The patient clearly had 4/5 strength in the left triceps and 5/5 in the right triceps. Motor strength is 4-4+/5 diffusely in the legs bilaterally including hip flexors, quadriceps, hamstrings, gastrocnemius, tibialis anterior, tibialis posterior, and Peroneii muscles bilaterally. Lower legs seem mildly weak stren gth was symmetrical toe extensors are normal and there is good bulk in the extensor digitorum brevis muscles bilaterally. The limbs have good tone without rigidity or spasticity. He is thin in his m usculature throughout. I noted no focal atrophy. Sensory examination is intact to touch and pin throughout all 4 limbs diffusely, although there may have been some very mild stocking decreased pinprick in the left greater than right leg. Reflexes are 2/4 in the biceps and triceps tendons bilaterally. Quadricep tendon reflexes were 1/4 bilaterally and brachioradialis and Achilles tendon reflexes are absent. Toes are downgoing with plantar stimulation bilaterally. Peripheral pulses are present and of normal quality distally in all 4 limbs. There is no peripheral edema noted in the limbs. Results & Data Vital Signs (Past 12 Hours) Vital Signs Temp Pulse Resp BP Pulse Ox O2 Del Method 11/18/23 07:58 37.0 C 106 H 24 144/74 H 98 Room Air 11/18/23 03:00 36.5 C 91 H 20 130/72 97 Room Air 11/17/23 23:14 36.6 C 94 H 22 127/69 99 Room Air PG Care Time/CCT Total # of Minutes Spent Total Time Spent with Patient: Total time spent is greater than 50% in coordination of care (as documented) at patient's floor/unit and/or counseling patient: Coding Level of Care Code 83690 INT INP/OBS CARE 3/75MIN Diagnoses Acute right-sided weakness R53.1 History of epilepsy Z86.69 Slurred speech R47.81 Ataxia R27.0 Neurocognitive disorder R41.9 Phenytoin toxicity T42.0X1A Cervical spinal stenosis M48.02 Vertebral artery occlusion I65.09 Time Spent (min) 110
--- NOTE | 2023-11-18 14:23 | Magnetic Resonance Report ---
MRI OF THE CERVICAL SPINE WITHOUT CONTRAST CLINICAL HISTORY: Cervical stenosis. COMPARISON: Cervical spine CT June 27, 2021. CTA of the neck November 17, 2023. TECHNIQUE: Utilizing a 1.5 Kathryn magnet and dedicated coil, multiplanar, multiecho imaging of the ce rvical spine was performed without IV contrast. FINDINGS: This exam is mildly compromised by motion artifact. There is reversal of the cervical lordosis with m ild retrolisthesis of C3 on C4, C4 on C5 and C5 on C6. There is no cervical spine fracture. No intrac analicular mass or fluid collection is present. Severe multilevel degenerative changes within the cer vical spine are present. There is no prevertebral edema. There is possible increased T2 signal within the cord at the C4-C5 level. Cervical cord appears somewhat diminutive in caliber at the C3-C5 level s. C2-C3: The central canal and neural foramen are patent. C3-C4: Posterior disc osteophyte complex indents the ventral aspect of the cord. There is moderate c entral canal stenosis. Moderate to severe bilateral neural foraminal stenosis is due to facet arthros is and uncovertebral hypertrophy. C4-C5: There is retrolisthesis with posterior disc osteophyte complex and ligamentous hypertrophy. F indings result in severe narrowing of the central canal. Patent AP diameter of the canal is 3 mm. The re is severe bilateral neural foraminal stenosis due to uncovertebral hypertrophy and facet arthrosis . C5-C6: There is mild disc space narrowing. Posterior disc osteophyte complex results in mild central canal stenosis. There is moderate bilateral neural foraminal stenosis. C6-C7: Mild posterior disc osteophyte complex results in mild central canal stenosis. There is sever e left and moderate right neural foraminal stenosis. C7-T1: The central canal and neural foramen are patent. IMPRESSION: 1. Multilevel degenerative disc disease and facet arthrosis within the cervical spine which results i n severe central canal stenosis at C4-C5 and moderate central canal stenosis at C3-C4. 2. Possible increased T2 signal within the cord at the C4-C5 level. This could reflect cord edema or myelomalacia given suspected cord atrophy. 3. Severe multilevel neural foraminal stenosis within the cervical spine, as detailed above. 4. Reversal of the cervical lordosis with multilevel retrolisthesis, as detailed above. ACT 112: Negative or not required by law. Electronically signed by: Doc Lee M.D. 11/18/2023 2:21 PM
--- NOTE | 2023-11-18 15:52 | Discharge Summary ---
Date of Service November 18, 2023 Admission HPI Per Admitting Provider 73-year-old gentleman history of traumatic brain bleed as well as epilepsy , TBI presenting via ambulance from [facility] present today. According to records from the staff and EMS report, patient evidently last week has had several falls and/or since 11 AM this morning was noted not quite be himself. They stated he had slurred speech and maybe had a bit of right facial droop. alert. Patient initially highly agitated with guards at bedside and handcuffed screaming why is he here and he does not want to be here.Patient is wheelchair bound. Follows commands and denies any numbness in the extremities. Denies dizziness. Denies headache. S Patient does report a history of seizures on Dilantin and Tegretol and states he has been taking these. 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 Principal Diagnosis TIA Discharge Exam Constitutional: well-appearing, no acute distress HEENT: NCAT, no conjunctival injection CV: regular rhythm, no murmur appreciated, extremities well-perfused, no LE edema Resp: CTABL, no wheezes/rales/rhonchi appreciated, no increased work of breathing MSK: no gross deformities appreciated Skin: warm, dry, no rash appreciated Neuro: alert, oriented, no focal neurologic deficit appreciated Discharge Data Allergies Allergy/AdvReac Type Severity Reaction Status Date / Time No Known Allergies Allergy Verified 11/17/23 16:53 Consultations 11/17/23 14:20 ED Decision to Admit Stat 11/17/23 17:11 Consult Neurology Routine Ordered Studies 11/17/23 12:14 CT angio head w con Stat CT angio neck with con Stat CT head/brain wo con Stat 11/17/23 15:43 MRI Angio Brain [MR angio head wo con] Stat 11/17/23 16:45 MR brain wo con Stat 11/18/23 09:59 MRI Cervical [MR cervical spine wo con] Urgent Laboratory Results WBC 6.98 K/ul (4.8-10.8) 11/18/23 07:12 RBC 4.16 M/uL (4.70-6.10) L 11/18/23 07:12 Hgb 11.8 g/dl (14.0-18.0) L 11/18/23 07:12 POC Hgb 13.6 g/dl (14.0-18.0) L 11/17/23 12:21 Hct 35.7 % (42.0-52.0) L 11/18/23 07:12 POC Hct 40 % (42-52) L 11/17/23 12:21 MCV 85.8 fL (80.0-100.0) 11/18/23 07:12 MCH 28.4 pg (25.0-34.0) 11/18/23 07:12 MCHC 33.1 g/dL (32.0-36.0) 11/18/23 07:12 RDW Std Deviation 44.5 fL (36.4-46.3) 11/18/23 07:12 RDW Coeff of Misty 14.2 % (11.5-14.5) 11/18/23 07:12 Plt Count 305 K/uL (130-400) 11/18/23 07:12 MPV 9.3 fL (9.4-12.4) L 11/18/23 07:12 Immature Gran % (Auto) 0.1 % 11/18/23 07:12 Neut % (Auto) 68.7 % 11/18/23 07:12 Lymph % (Auto) 18.1 % 11/18/23 07:12 Randolph % (Auto) 9.2 % 11/18/23 07:12 Eos % (Auto) 3.0 % 11/18/23 07:12 Baso % (Auto) 0.9 % 11/18/23 07:12 Neut # (Auto) 4.80 K/uL (1.40-6.50) 11/18/23 07:12 Lymph # (Auto) 1.26 K/uL (1.20-3.40) 11/18/23 07:12 Randolph # (Auto) 0.64 K/uL (0.11-0.59) H 11/18/23 07:12 Eos # (Auto) 0.21 K/uL (0.00-0.50) 11/18/23 07:12 Baso # (Auto) 0.06 K/uL (0.00-0.20) 11/18/23 07:12 Immature Gran # (Auto) 0.01 K/uL (0.01-0.20) 11/18/23 07:12 Target Cells 1+ 11/17/23 12:19 PT 11.4 Seconds (9.0-12.0) 11/17/23 12:19 INR 1.1 (0.9-1.1) 11/17/23 12:19 APTT 33 Seconds (21-31) H 11/17/23 12:19 PTT Ratio 1.2 11/17/23 12:19 POC Sodium 138 mmol/L (135-144) 11/17/23 12:21 Sodium 136 mmol/L (136-145) 11/18/23 07:12 POC Potassium 4.3 mmol/L (3.3-5.0) 11/17/23 12:21 Potassium 4.5 mmol/L (3.5-5.1) 11/18/23 07:12 POC Chloride 102 mmol/L (101-112) 11/17/23 12:21 Chloride 103 mmol/L (98-107) 11/18/23 07:12 Carbon Dioxide 28 mmol/L (21-32) 11/18/23 07:12 POC Total CO2 26 mmol/L (24-31) 11/17/23 12:21 Anion Gap 5 (3-11) 11/18/23 07:12 POC Anion Gap 15.0 mmol/L (16-25) L 11/17/23 12:21 POC BUN 19 mg/dl (7-18) H 11/17/23 12:21 BUN 15 mg/dl (6-23) 11/18/23 07:12 Creatinine 0.73 mg/dl (0.6-1.4) 11/18/23 07:12 POC Creatinine 0.8 mg/dl (0.6-1.3) 11/17/23 12:21 Est Cr Clr Drug Dosing 69.5 ml/min 11/18/23 07:12 Est GFR ( Amer) 105.2 ml/min 11/18/23 07:12 Est GFR (Non-Af Amer) 90.7 ml/min 11/18/23 07:12 BUN/Creatinine Ratio 20.5 (10-20) H 11/18/23 07:12 Glucose 78 mg/dl (70-99(Fasting)) 11/18/23 07:12 POC Glucose (other) 84 mg/dl (70-99) 11/17/23 12:21 Estimat Average Glucose 111 mg/dl 11/18/23 07:43 Hemoglobin A1c 5.5 % (4.5-5.6) 11/18/23 07:43 Calcium 8.8 mg/dl (8.6-10.3) 11/18/23 07:12 POC Ioniz Calcium Oscar 1.16 mmol/l (1.12-1.32) 11/17/23 12:21 Magnesium 2.3 mg/dl (1.7-2.4) 11/18/23 07:12 Total Bilirubin 0.3 mg/dl (0.2-1.0) 11/17/23 12:19 AST 34 U/L (13-39) 11/17/23 12:19 ALT 15 U/L (7-52) 11/17/23 12:19 Alkaline Phosphatase 90 U/L (34-104) 11/17/23 12:19 Troponin I High Sens 17.7 pg/ml (0-20) 11/17/23 12:19 Total Protein 8.6 gm/dl (6.0-8.3) H 11/17/23 12:19 Albumin 4.3 gm/dl (3.4-5.0) 11/17/23 12:19 Globulin 4.3 gm/dl (2.5-4.0) H 11/17/23 12:19 Albumin/Globulin Ratio 1.0 (0.9-2) 11/17/23 12:19 Triglycerides 52 mg/dl (0-150) 11/18/23 07:12 Cholesterol 127 mg/dl (0-200) 11/18/23 07:12 LDL Cholesterol, Calc 67 mg/dl 11/18/23 07:12 VLDL Cholesterol, Calc 10 mg/dl (0-30) 11/18/23 07:12 HDL Cholesterol 50 mg/dl 11/18/23 07:12 Cholesterol/HDL Ratio 2.5 (0-5) 11/18/23 07:12 Vitamin B12 641 pg/ml (180-914) 11/18/23 13:07 TSH 2.045 uIu/ml (0.300-4.500) 11/18/23 07:12 Urine Color Yellow 11/17/23 19: Urine Appearance Clear (Clear) 11/17/23 19: Urine pH 7.0 (4.5-7.5) 11/17/23 19:27 Ur Specific Hillman 1.026 (1.000-1.030) 11/17/23 19:27 Urine Protein Negative (Negative) 11/17/23 19: Urine Glucose (UA) Negative (Negative) 11/17/23 19: Urine Ketones Negative (Negative) 11/17/23 19: Urine Blood Trace (Negative) H 11/17/23 19: Urine Nitrite Negative (Negative) 11/17/23 19: Urine Bilirubin Negative (Negative) 11/17/23 19: Urine Urobilinogen Negative (Negative) 11/17/23 19: Ur Leukocyte Esterase Negative (Negative) 11/17/23 19:27 Urine WBC (Auto) 0-5 /hpf (0-5) 11/17/23 19:27 Urine RBC (Auto) 11-20 /hpf (0-2) H 11/17/23 19:27 U Hyaline Cast (Auto) 0-2 /lpf (0-2) 11/17/23 19:27 U Epithel Cells (Auto) 0-2 /hpf (0-2) 11/17/23 19:27 Urine Bacteria (Auto) None Seen (None Seen) 11/17/23 19:27 Phenytoin Cancelled 11/18/23 11:04 Carbamazepine Cancelled 11/17/23 16:32 SARS-CoV-2, RNA, NAAT NEGATIVE (NEGATIVE) 11/17/23 14:[address] 11/17/23 12:14 CT SCAN OF THE BRAIN WITHOUT IV CONTRAST CLINICAL HISTORY: Strokelike symptoms. Neurological deficit. Right-sided weakness. Change in mental status. COMPARISON STUDY: CT of the brain dated 06/15/2022. TECHNIQUE: Unenhanced axial CT scan of the brain is performed from the vertex to the skull base. A dose lowering technique was utilized adhering to the principles of ALARA. FINDINGS: Brain parenchyma: There is age-related involutional change noting moderate to advanced confluent subcortical and periventricular microangiopathic disease. There is no hemorrhage, mass effect, or evidence of acute territorial ischemia by CT criteria. Jason-white matter differentiation is preserved. No extra-axial fluid collection is seen. A chronic lacunar infarct is noted in the right thalamus. Ventricles, sulci, cisterns: Prominent secondary to involutional change. Intracranial vasculature: There is atherosclerotic calcification of the cavernous carotid arteries. Calvarium: Unremarkable. Sinuses and mastoids: The visualized paranasal sinuses are clear. The mastoid air cells are well pneumatized. Orbits: The bony orbits are grossly intact. IMPRESSION: There is no hemorrhage, mass effect, or evidence of acute territorial ischemia by CT criteria. ACT 112: Negative or not required by law. Electronically signed by: Logan Hugo M.D. 11/17/2023 12:45 PM Head CTA 11/17/23 12:14 CTA ANGIOGRAPHY OF THE HEAD CLINICAL HISTORY: neuro deficit, acute stroke suspected. Right-sided weakness. COMPARISON STUDY: Head CT June 15, 2022. TECHNIQUE: Helical axial images of the head were obtained following uneventful intravenous administration of 118 cc of Optiray. Sagittal and coronal reconstructions were viewed as well as maximal intensity projections on an independent 3-D workstation. Automated exposure control was utilized for the study. A dose lowering technique was utilized adhering to the principles of ALARA. FINDINGS: No acute intracranial hemorrhage was identified on the head CT will be reported separately. Atrophy is noted. This accounts for ventricular dilatation. White matter hypodensity suggests small vessel disease. The bilateral M1, M2, A1 and A2 segments are patent. There is no occlusion within the anterior circular lesion. There is no intracranial aneurysm. The left vertebral artery is occluded with reconstitution at the level of the distal intracranial portion. This occlusion is age-indeterminate but are depicted on CTA of the neck. The intracranial portion of the right vertebral artery is patent. Basilar artery is patent as are the bilateral posterior cerebral arteries. There are bilateral posterior communicating arteries. IMPRESSION: 1. 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 2. Otherwise, patent intracranial vessels. 3. No intracranial aneurysms. ACT 112: Negative or not required by law. Electronically signed by: Doc Lee M.D. 11/17/2023 12:54 PM Neck CTA 11/17/23 12:14 CT ANGIOGRAM OF THE NECK CLINICAL HISTORY: Neurological deficit. Strokelike symptoms. Right-sided weakness. COMPARISON STUDY: No priors. TECHNIQUE: Following the IV administration of 118 of Optiray 320, CT angiogram of the neck was performed from the aortic arch to the skull base. Images are reviewed in the axial, sagittal, and coronal planes. 3-D MIPS images are created and assessed. IV contrast was administered without complication. All measurements were calculated based on NASCET criteria. A dose lowering technique was utilized adhering to the principles of ALARA. CT DOSE: 1100.62 mGy.cm FINDINGS: Thoracic aorta: There is atherosclerotic calcification of the thoracic aorta. Visualized portions of the thoracic aorta are normal in caliber. The aortic arch demonstrates standard 3-vessel anatomy. Right carotid arterial system: The right common carotid artery is widely patent, as are the right internal and external carotid arteries. Mild calcified plaque is seen in the carotid bulb. Left carotid arterial system: The left common carotid artery is widely patent, as are the left internal and external carotid arteries. Calcified plaque is noted in the carotid bulb and the proximal ICA. 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 The vessels occlude to the skull base. There is moderate to high-grade focal stenosis at the origin of the right vertebral artery seen on axial image #87. Remainder of the right vertebral artery is widely patent. Subclavian arteries: Widely patent bilaterally. Intracranial vasculature: There is complete occlusion of the left vertebral artery at the skull base. This is reconstituted via retrograde flow below the basilar. The remaining intracranial vessels at the skull base are patent. See report of CT angiogram of the brain performed concurrently for detailed f indings. Jugular veins: Widely patent bilaterally. Brain parenchyma: The visualized brain parenchyma the skull base is within normal limits. Lung apices: Emphysematous changes noted. Partially visualized upper lobe lung parenchyma otherwise appears clear. Soft tissues: The visualized pharyngeal soft tissues are normal in appearance noting angiographic phase technique. The oropharyngeal airway appears widely patent. The thyroid gland is mildly enlarged and heterogeneous. The salivary glands are normal in appearance. No cervical lymphadenopathy is seen. Skeletal structures: The skeletal structures are osteopenic. The visualized calvarium at the skull base appears intact. The imaged cervical spine is maintained noting multilevel spondylosis. Sinuses and mastoids: There is trace mucosal thickening in the right maxillary antrum. The mastoid air cells are well pneumatized. IMPRESSION: 1. 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 Underlying dissection would be impossible to exclude. 2. There is moderate to high-grade stenosis at the origin of the right vertebral artery. 3. The carotid vessels are patent bilaterally. 4. Emphysema. ACT 112: Negative or not required by law. Electronically signed by: Logan Hugo M.D. 11/17/2023 12:53 PM Head MRA 11/17/23 15:43 Exam(s): MRA HEAD Without Contrast EXAM: MR Angiography Head Without Intravenous Contrast CLINICAL HISTORY: Reason for exam: vertebral artery dissection. TECHNIQUE: Magnetic resonance angiography images of the head without intravenous contrast. COMPARISON: CTA of the head performed on 11/17/2023. FINDINGS: Limitations: Study limited by patient motion. Right internal carotid artery: No acute findings. Intracranial segment is patent with no significant stenosis. No aneurysm. Right anterior cerebral artery: Unremarkable. No occlusion or significant stenosis. No aneurysm. Right middle cerebral artery: Unremarkable. No occlusion or significant stenosis. No aneurysm. Right posterior cerebral artery: Unremarkable. No occlusion or significant stenosis. No aneurysm. Right vertebral artery: Unremarkable as visualized. Left internal carotid artery: No acute findings. Intracranial segment is patent with no significant stenosis. No aneurysm. Left anterior cerebral artery: Unremarkable. No occlusion or significant stenosis. No aneurysm. Left middle cerebral artery: Unremarkable. No occlusion or significant stenosis. No aneurysm. Left posterior cerebral artery: Unremarkable. No occlusion or significant stenosis. No aneurysm. Left vertebral artery: Unremarkable as visualized. Basilar artery: Unremarkable. No occlusion or significant stenosis. No aneurysm. IMPRESSION: Study limited by patient motion but no gross acute abnormality of the large caliber intracranial arteries. Electronically signed by: Dagoberto Pizano M.D. 11/17/23 21:18 PM Brain MRI 11/17/23 16:45 Exam(s): MRI HEAD Without Contrast EXAM: MR Head Without Intravenous Contrast CLINICAL HISTORY: Reason for exam: CVA. TECHNIQUE: Magnetic resonance images of the head/brain without intravenous contrast in multiple planes. COMPARISON: No relevant prior studies available. FINDINGS: Brain: Left occipital encephalomalacia likely related to remote infarct. Atrophy cerebral spinal cord with severe spinal canal stenosis at the C4-5 level incompletely evaluated on this exam. Moderate periventricular white matter changes, likely related to chronic microangiopathy. No hemorrhage. Ventricles: Unremarkable. No ventriculomegaly. Bones/joints: See above. Sinuses: Unremarkable as visualized. No acute sinusitis. Mastoid air cells: Unremarkable as visualized. No mastoid effusion. Orbits: Unremarkable as visualized. IMPRESSION: 1. Atrophy cerebral spinal cord with severe spinal canal stenosis at the C4-5 level incompletely evaluated on this exam. 2. Moderate periventricular white matter changes, likely related to chronic microangiopathy. Electronically signed by: Dagoberto Pizano M.D. 11/17/23 21:22 PM Chest X-Ray 11/17/23 18:07 SINGLE VIEW CHEST CLINICAL HISTORY: MRI clearance. FINDINGS: An AP, portable, supine chest radiograph is compared to study dated 06/15/2022. The cardiomediastinal silhouette is top normal for projection noting atherosclerotic calcification of the thoracic aorta. Emphysema and chronic interstitial thickening is similar to previous. Postoperative parenchymal scarring are seen throughout both lungs. No airspace consolidation or large pleural effusion is identified. No pneumothorax is seen. The skeletal structures are osteopenic. There are chronic/healed left-sided rib fractures. No radiodense/metallic foreign body is seen. IMPRESSION: 1. Emphysematous change with no active disease in the chest. 2. No radiodense/metallic foreign body is seen. ACT 112: Negative or not required by law. Electronically signed by: Logan Hugo M.D. 11/17/2023 6:44 PM Orbit X-Ray 11/17/23 18:07 BONY ORBITS 3 VIEWS CLINICAL HISTORY: MRI clearance. FINDINGS: 3 views of the bony orbits are obtained. No prior studies are available for comparison at the time of dictation. There is no radiodense/metallic foreign body seen in the region of the bony orbits. The bony orbits are intact as imaged. The visualized paranasal sinuses and the mastoid ai r cells appear clear. The imaged calvarium appears intact. The patient is edentulous. IMPRESSION: There is no radiodense/metallic foreign body seen in the region of the bony orbits. ACT 112: Negative or not required by law. Electronically signed by: Logan Hugo M.D. 11/17/2023 6:56 PM KUB X-Ray 11/17/23 18:08 KUB CLINICAL HISTORY: MRI clearance. FINDINGS: 2 AP, portable, supine abdominal radiographs are obtained. No prior studies are available for comparison at the time of dictation. There is a nonobstructed abdominal bowel gas pattern. Moderate to severe constipation is observed. No evidence of intraperitoneal free air is identified on these supine images. The bladder is markedly distended with excreted IV contrast and there is bilateral hydronephrosis. The skeletal structures are osteopenic. The bony structures are grossly intact. No radiodense/metallic foreign body is seen. IMPRESSION: 1. Excreted IV contrast shows a severely distended bladder with bilateral hydronephrosis. This likely represents bladder outlet obstruction. 2. Moderate to severe constipation. 3. No radiodense/metallic foreign body is identified. Electronically signed by: Logan Hugo M.D. 11/17/2023 6:53 PM Cervical Spine MRI 11/18/23 09:59 MRI OF THE CERVICAL SPINE WITHOUT CONTRAST CLINICAL HISTORY: Cervical stenosis. COMPARISON: Cervical spine CT June 27, 2021. CTA of the neck November 17, 2023. TECHNIQUE: Utilizing a 1.5 Kathryn magnet and dedicated coil, multiplanar, multiecho imaging of the cervical spine was performed without IV contrast. FINDINGS: This exam is mildly compromised by motion artifact. There is reversal of the cervical lordosis with mild retrolisthesis of C3 on C4, C4 on C5 and C5 on C6. There is no cervical spine fracture. No intracanalicular mass or fluid collection is present. Severe multilevel degenerative changes within the cervical spine are present. There is no prevertebral edema. There is possible increased T2 signal within the cord at the C4-C5 level. Cervical cord appears somewhat diminutive in caliber at the C3-C5 levels. C2-C3: The central canal and neural foramen are patent. C3-C4: Posterior disc osteophyte complex indents the ventral aspect of the cord. There is moderate central canal stenosis. Moderate to severe bilateral neural foraminal stenosis is due to facet arthrosis and uncovertebral hypertrophy. C4-C5: There is retrolisthesis with posterior disc osteophyte complex and ligamentous hypertrophy. Findings result in severe narrowing of the central canal. Patent AP diameter of the canal is 3 mm. There is severe bilateral neural foraminal stenosis due to uncovertebral hypertrophy and facet arthrosis. C5-C6: There is mild disc space narrowing. Posterior disc osteophyte complex results in mild central canal stenosis. There is moderate bilateral neural foraminal stenosis. C6-C7: Mild posterior disc osteophyte complex results in mild central canal stenosis. There is severe left and moderate right neural foraminal stenosis. C7-T1: The central canal and neural foramen are patent. IMPRESSION: 1. Multilevel degenerative disc disease and facet arthrosis within the cervical spine which results in severe central canal stenosis at C4-C5 and moderate central canal stenosis at C3-C4. 2. Possible increased T2 signal within the cord at the C4-C5 level. This could reflect cord edema or myelomalacia given suspected cord atrophy. 3. Severe multilevel neural foraminal stenosis within the cervical spine, as detailed above. 4. Reversal of the cervical lordosis with multilevel retrolisthesis, as detailed above. ACT 112: Negative or not required by law. Electronically signed by: Doc Lee M.D. 11/18/2023 2:21 PM Hospital Course (1) Cervical spinal stenosis: 73 yo male with h/o TBI, seizures admitted with change in mental status, TIA symptoms, CTA brain vertebral artery occlusion, acuity unknown Right Sided Weakness, Slurred Speech/Ataxia - pt appears to be back at his baseline prior to d/c - CBC revealed mild but stable anemia. Phenytoin level was elevated at 31. His carbamazepine level is still pending. - CT scan of the head was unremarkable. - CT angiography of the head and neck was remarkable only for some right vertebral stenosis of a moderate to significant nature at the origin, and an age-indeterminate left vertebral occlusion. - MRI of the brain showed atrophy and white matter disease but no acute stroke. - was seen by neurology. Concern for toxic levels of phenytoin/carbamazepine with mcfp toxicity which can present as ataxia, dementia, and neuropathy. Questionable TIA given symptomatology on presentation. They are recommending: - Continue Dilantin at the decreased dose of 100 mg twice a day. Recheck a trough level in 2 weeks and adjust accordingly - Awaiting carbamazepine level (I also suspect that this is toxic as he is on a very large dose for his size). 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 This would include lamotrigine. I would not, however, make any changes in medication at this time (simply lower toxic levels ). -Recommending Lyme antibody titer/test for syphilis but pt refused blood draw, so would draw as an outpatient. If syphilis comes back positive, would consider further evaluation for neurosyphilis with an outpatient LP. - Continue 81 mg aspirin tablet daily. Depending on his clinical course she may do better with clopidogrel instead of aspirin given his significant vertebral stenosis. - outpatient and 4 to 6 weeks with neurology History of Epilepsy - changes in medications as per above - will need outpatient neurology f/u Cervical Spinal Stenosis - MRI of cervical spine with Multilevel degenerative disc disease and facet arthrosis within the cervical spine which results in severe central canal stenosis at C4-C5 and moderate central canal stenosis at C3-C4.Possible increased T2 signal within the cord at the C4-C5 level. This could reflect cord edema or myelomalacia given suspected cord atrophy. - unclear if these changes are chronic vs acute, but neurology recommending OP neurology f/u and ortho/spine evaluation if it has not been completed prior Bladder Outlet Obstruction - KUB with severely distended bladder with bilateral hydronephrosis; landa catheter was placed in the ED - landa was removed prior to d/c, has not voided yet - should monitor for voiding in next 24 hours; straight cath if needed (2) Phenytoin toxicity: (3) Ataxia: (4) Neurocognitive disorder: (5) Acute right-sided weakness: (6) Vertebral artery occlusion: (7) History of epilepsy: (8) Slurred speech: Total Time Total Time Spent Total Time Spent (In Minutes): see attending attestation Discharge Plan Discharge Items [facility] Disposition[facility] Reason For Visit: CVA Discharge Diagnosis: TIA Activity: Per Instructions section Non-emergency contact: Primary Care Provider Call non-emergency contact if: you have any medication questions Follow-up/Referrals: Antonio Regalado MD [Physician] - (4-6 weeks ) Dasha PILLAI [Primary Care Provider] - Diet: Regular Addtl Attending Provider Instructions: 73 yo male with h/o TBI, seizures admitted with change in mental status, TIA symptoms, CTA brain vertebral artery occlusion, acuity unknown Right Sided Weakness, Slurred Speech/Ataxia - pt appears to be back at his baseline prior to d/c - CBC revealed mild but stable anemia. Phenytoin level was elevated at 31. His carbamazepine level is still pending. - CT scan of the head was unremarkable. - CT angiography of the head and neck was remarkable only for some right vertebral stenosis of a moderate to significant nature at the origin, and an age-indeterminate left vertebral occlusion. - MRI of the brain showed atrophy and white matter disease but no acute stroke. - was seen by neurology. Concern for toxic levels of phenytoin/carbamazepine with mcfp toxicity which can present as ataxia, dementia, and neuropathy. Questionable TIA given symptomatology on presentation. They are recommending: - Continue Dilantin at the decreased dose of 100 mg twice a day. Recheck a trough level in 2 weeks and adjust accordingly - Awaiting carbamazepine level (I also suspect that this is toxic as he is on a very large dose for his size). - half-way (as an outpatient) we may consider discontinuing Dilantin or carbamazepine and using different, new or anticonvulsants which do not have the long-term cognitive side effects. This would include lamotrigine. I would not, however, make any changes in medication at this time (simply lower toxic levels). -Recommending Lyme antibody titer/test for syphilis but pt refused blood draw, so would draw as an outpatient. If syphilis comes back positive, would consider further evaluation for neurosyphilis with an outpatient LP. - Continue 81 mg aspirin tablet daily. Depending on his clinical course she may do better with clopidogrel instead of aspirin given his significant vertebral stenosis. - outpatient and 4 to 6 weeks with neurology History of Epilepsy - changes in medications as per above - will need outpatient neurology f/u Cervical Spinal Stenosis - MRI of cervical spine with Multilevel degenerative disc disease and facet arthrosis within the cervical spine which results in severe central canal stenosis at C4-C5 and moderate central canal stenosis at C3-C4.Possible increased T2 signal within the cord at the C4-C5 level. This could reflect cord edema or myelomalacia given suspected cord atrophy. - unclear if these changes are chronic vs acute, but neurology recommending OP neurology f/u and ortho/spine evaluation if it has not been completed prior Bladder Outlet Obstruction - KUB with severely distended bladder with bilateral hydronephrosis; landa catheter was placed in the ED - landa was removed prior to d/c, has not voided yet - should monitor for voiding in next 24 hours; straight cath if needed Pending Studies at Discharge: No Stand-Alone Forms: My [facility] Skilled Items Patient informed of condition?: Yes Discharge Level of Care: Other Communicable Disease: No Discharge Prognosis: Stable Lines: None Urinary Catheter: No Medications and DC Order Prescriptions: New aspirin 81 mg Tablet,Delayed Release (Dr/Ec) 81 mg PO QAM 30 Days Qty: 30 0RF Continued atorvastatin 20 mg Tablet 20 mg PO DAILY carbamazepine [Tegretol] 200 mg Tablet 600 mg PO AMPM Rx Instructions: TAKE THREE 200MG TABLETS DAILY IN THE AM AND PM. memantine 10 mg Tablet 10 mg PO BID Changed phenytoin sodium extended 100 mg Capsule 100 mg PO BID Qty: 0 0RF Rx Instructions: take this med twice daily in addition to 50mg chewable every AM. Discontinued phenytoin 50 mg Tablet,Chewable 50 mg PO QAM Rx Instructions: TAKE THIS MED EVERY AM IN ADDITION TO 100MG ER = 150MG EVERY AM. phenytoin 50 mg Tablet,Chewable 50 mg PO 4XWK Rx Instructions: TAKE THIS MED EVERY WEDNESDAY, WEDNESDAY, WEDNESDAY, WEDNESDAY IN THE PM IN ADDITION TO 100 MG ER = 150MG 4X WEEK IN THE PM. Discharge Orders: Discharge Order (Routine); Ordered 11/18/23 Ordered By: Kenya Lopez Admission Data Admit Date/Time: 11/17/23 15:26 Attending Provider: Liz Campos Admit Provider: Kyra Fajardo Primary Care Provider: Dasha PILLAI Other Providers: Kyra Fajardo; Antonio Regalado Supervising Physician Co-Signing Physician Notes Attending Physician Supervision Note: I independently interviewed and examined the patient and verified the landry history and physical, reviewed labs and image studies and agree with findings and care plan noted above.
== END 2023-11-18 18:43 | DRG 68 ==
LOC: ED 12:09 → EDINP 15:26 → SUATTDRO 15:26 → 2E 17:07